=== PATIENT | female | born 1975 | race Caucasian/White ===

== ENCOUNTER → 2016-06-18 | Day surgery (SDC) | payer OTHER ==
[~2016-06-18] MED LIST: ACETAMINOPHEN 1000 MG/100 ML VIAL IV ONE; ACETAMINOPHEN/HYDROcodone 325 MG/5 MG TAB ONE; BACITRACIN IM FOR SOLN 50,000 UNIT VIAL ONE; BUPIVACAINE/EPINEPHRINE 0.25% 50 ML VIAL ONE; GENTAMICIN SULFATE 80 MG/2 ML VIAL ONE; LACTATED RINGER'S 1000 ML INJ 1,000 ML ONE; LIDOCAINE 1%/EPINEPHrine 1:100,000 SOLN 20 ML VIAL ONE; MIDAZOLAM HCL 2 MG/2 ML VIAL ONE; ONDANSETRON HCL 4 MG/2 ML VIAL IV PUSH ONE; PROPOFOL 200 MG/20 ML AMP IV ONE; SODIUM CHLORIDE 0.9% 20 ML VIAL ONE; ceFAZolin INJ 1,000 MG VIAL ONE
--- NOTE | 2016-06-19 07:36 | TN ---
cc: CALDERON YOUNGER DATE OF SURGERY 06/18/2016 PREOPERATIVE DIAGNOSIS Wishes breast enhancement. POSTOPERATIVE DIAGNOSIS Wishes breast enhancement. PROCEDURE Bilateral augmentation mammoplasty. SURGEON Calderon Younger MD ANESTHESIA LMA general, breast block, total of 60 cc of a combination of 1% lidocaine and epinephrine mixed with 0.25% Marcaine in a 2:1 ratio. COMPLICATIONS None IMPLANT DATA, TECHNIQUE AND PLACEMENT Saline Natrelle 68 high-profile saline, retroperitoneal plane inframammary incision. The serial number of the right breast implant device is [id number] filled to 410 cc. Serial number of left breast implant device [id number] filled to 430 cc. PROCEDURE IN DETAIL She was properly consented, marked, properly anesthetized. The skin was sterilized with Betadine solution and sterile draping applied. Anesthetic infiltration was carried out. Through a 3-3-1/2 cm inframammary incision, the retropectoral plane was developed releasing the inferomedial fibers of the pectoris major muscle. After creating the pocket and assuring meticulous hemostasis, irrigation with triple antibiotic solution took place. With this, I proceeded and performed the same maneuver on the contralateral left breast and isolate the skin and the nipple from the beginning with Tegaderm. The implant was introduced, partially expanded and expanded to the above-mentioned volumes. The patient was sat up and we basically touched it with volume and blunt maneuvers to achieve best symmetry possible. With this, I removed the filling tubing, assured the valve was properly sealed and the wound was closed in three layers of 2-0 Monocryl suture in Deanna's fascia, dermis and subcu. Mastisol and Steri-Strips were applied. Absorbent dressings, as well as a snug brassiere. The patient tolerated the procedure well. She was awakened and extubated in the operating room, transferred back to postanesthesia care unit in stable condition. There were no complications appreciated. The patient tolerated the procedure fairly well. MD DMITRI Dan/TIEN /11:22 AM /6:24 AM [facility]
== END | disposition home or self-care (01) ==
LOC: ESDC 09:25
PROVIDERS: ATTEND Plastic Surgery
DX: Z41.1 Encounter for cosmetic surgery (principal)
CPT/HCPCS: 00402; 19325; C1789; J0131; J0690; J1580; J2250; J2405; J3010; J7120